=== PATIENT | female | born 1960 | race Two or more races ===

== ENCOUNTER 2016-09-28 17:33 | Emergency (ER) | payer BC, MEDICAID ==
[~2016-09-28] VITALS: Ht 165.1 cm; Wt 96.2 kg
[~2016-09-28 17:33] MED LIST: IBUPROFEN600 MG ORAL; KEFLEX500 MG ORAL; MACROBID100 MG ORAL; NEXIUM40 MG ORAL; NKM; NORCO 5-325 TA1 EACH ORAL; ZOFRAN4 MG ORAL
[2016-09-28 18:18] LABS: BASOPHILS % (AUTO) 0.7 % (0.0-2.0); EOSINOPHILS % (AUTO) 1.6 % (0.0-3.0); LYMPHOCYTES % (AUTO) 40.2 % (20.0-45.0); MEAN CORPUSCULAR HEMOGLOBIN 29.4 PG (27.0-31.0); MEAN CORPUSCULAR HGB CONC 34.1 G/DL (32.0-36.0); MEAN CORPUSCULAR VOLUME 86 FL (80-99); MEAN PLATELET VOLUME 5.5 FL (6.5-10.1); MONOCYTES % (AUTO) 6.2 % (1.0-10.0); NEUTROPHILS % (AUTO) 51.4 % (45.0-75.0); PLATELET COUNT 351 K/UL (150-450); RED CELL DISTRIBUTION WIDTH 12.1 % (11.6-14.8); WHITE BLOOD COUNT 11.2 K/UL (4.8-10.8)
[2016-09-28] MEDS ORDERED: Morphine Sulfate 4mg/ml Inj IVP ONE (18:30)
[2016-09-28] MEDS ORDERED: Aspirin Baby 81mg ORAL ONE (18:30)
[2016-09-28] MEDS ORDERED: Nitroglycerin 2% oint pkt TOPIC ONE (18:30)
[2016-09-28 18:41] LABS: TROPONIN I < 0.30 ng/mL (<=0.30)
[2016-09-28 18:45] LABS: ALANINE AMINOTRANSFERASE 31 U/L (3-33); ALBUMIN/GLOBULIN RATIO 1.2 (1.0-2.7); ANION GAP 16 (5-15); ASPARTATE AMINO TRANSFERASE 24 U/L (5-40); CALCIUM 9.8 mg/dL (8.6-10.2); CARBON DIOXIDE 25 mEQ/L (20-30); CHLORIDE 98 mEQ/L (98-107); GLOMERULAR FILTRATION RATE 57.8 mL/min (>60); HEMOLYSIS 3; SODIUM 139 mEQ/L (135-145); TOTAL PROTEIN 7.9 g/dL (6.6-8.7)
[2016-09-28] MEDS ORDERED: TRAMADOL HCL50 MG ORAL (18:53)
[2016-09-28 18:55] LABS: CKMB < 1.5 ng/mL (< 3.8)
[2016-09-28 19:08] VITALS: BP 154/79
[2016-09-28] MEDS ORDERED: LORazepam Inj 2mg/ml 1ml IV ONE (20:00)
[2016-09-28 20:13] LABS: APPEARANCE,URINE CLEAR; KETONES,URINE NEGATIVE (NEGATIVE); LEUKOCYTE ESTERASE ,URINE 3+ (NEGATIVE); NITRITE,URINE NEGATIVE (NEGATIVE); PH,URINE 6 (4.5-8.0); PROTEIN,URINE NEGATIVE (NEGATIVE); UROBILINOGEN,URINE NORMAL MG/DL (0.0-1.0)
[2016-09-28 20:25] LABS: BACTERIA,URINE FEW /HPF; SQUAMOUS EPITHELIAL CELL,UR MANY /LPF (NONE/OCC); WBC,URINE 40-60 /HPF (0 - 2)
[2016-09-28 21:34] VITALS: BP 137/77
[2016-09-28] MEDS ORDERED: fentaNYL 100 mcg/2 mL IV ONE (21:45)
--- NOTE | 2016-09-28 22:15 | Emergency Room Report ---
History of Present Illness General Chief Complaint: Chest Pain Source: Patient (KELLI MAGANA) Present Illness HPI The patient is a 55-year-old female with a history of depression and untreated hypertension presenting for right-sided back pain and chest pain. The patient states that back pain began one week prior for no known reason. She denies any fall or other injury. This is described as an 8/10 dull ache and radiates from the right lower back to the right leg. Pain worse with movement. She has tried tramadol and Motrin which does help a little. The patient also noticed chest pain which began 2 hours prior to arrival. Pain has been constant and is described as a 5/10 pressure to the mid chest. Does not radiate. No known provoking or relieving factors. She also admits to feeling of shortness of breath. She denies having this sensation in the past. She denies any other symptoms including nausea, vomiting, fever, chills, headache, dizziness, numbness or tingling, weakness, abdominal pain (KELLI MAGANA) Allergies: Coded Allergies: No Known Allergies (Verified Allergy, Unknown, 04/01/09) Patient History Past Medical History: see triage record Pertinent Family History: none Reviewed Nursing Documentation: PMH: Agreed, PSxH: Agreed (KELLI MAGANA) Nursing Documentation-PMH Past Medical History: No Stated History Hx Cardiac Problems: No Hx Hypertension: No Hx Cancer: No Hx Gastrointestinal Problems: No Hx Neurological Problems: No (KELLI MAGANA) Review of Systems All Other Systems: negative except mentioned in HPI (KELLI MAGANA) Physical Exam Vital Signs Date Time Temp Pulse Resp B/P Pulse Ox O2 Delivery O2 Flow Rate FiO2 09/28/16 17:41 97.7 79 16 154/78 99 09/28/16 19:08 Room Air Sp02 EP Interpretation: reviewed, normal General Appearance: no apparent distress, alert, GCS 15, non-toxic Head: normocephalic, atraumatic Eyes: bilateral eye PERRL, bilateral eye normal inspection ENT: hearing grossly normal, normal pharynx, no angioedema, normal voice Neck: full range of motion, supple/symm/no masses Respiratory: chest non-tender, lungs clear, normal breath sounds, no accessory muscle use, no wheezing, speaking full sentences Cardiovascular #1: regular rate, rhythm, no edema, no gallop, no JVD, no murmur Gastrointestinal: normal bowel sounds, non tender, soft, non-distended, no guarding, no rebound Musculoskeletal: back normal, gait/station normal, normal range of motion, tender - TTP over the R lumbar paraspinous muscles Neurologic: alert, oriented x3, responsive, motor strength/tone normal, sensory intact, speech normal Psychiatric: judgement/insight normal, memory normal, mood/affect normal, no suicidal/homicidal ideation Skin: normal color, no rash, warm/dry, well hydrated (KELLI MAGANA.[email or web address]) Medical Decision Making PA Attestation Dr. Sepulveda is my supervising physician. Patient management was discussed with my supervising physician (KELLI MAGANA) Diagnostic Impression: Primary Impression: Chest pain Qualified Codes: R07.9 - Chest pain, unspecified Additional Impressions: UTI (urinary tract infection) Qualified Codes: N30.00 - Acute cystitis without hematuria Back muscle spasm ER Course The patient is a 55-year-old female presenting for right-sided back pain and chest pain Differential diagnosis include but not limited to ACS, PE,CHF, pneumonia, gastritis, anxiety, muscle strain, among others PE: Pt is hypertensive. Otherwise unremarkable. NAD RRR. No MRG Lungs CTA bilat Abdomen is soft and nontender There is tenderness to palpation over the right lumbar paraspinal muscles. Blood work shows slight leukocytosis as well as a likely urinary tract infection. PO macrobid given. Cardiac markers are essentially negative EKG and chest x-ray both unremarkable. No acute changes The patient is given nitro paste The patient is given IV morphine and states that pain has only slightly improved. She is then given fentanyl and is feeling better. The patient will be transferred to [facility]. Case has been discussed between Dr. Sepulveda and Dr. Pillo Booth. The patient agrees with this plan Laboratory Tests Test 09/28/16 17:50 09/28/16 19:22 White Blood Count 11.2 K/UL (4.8-10.8) H Red Blood Count 4.20 M/UL (4.20-5.40) Hemoglobin 12.3 G/DL (12.0-16.0) Hematocrit 36.2 % (37.0-47.0) L Mean Corpuscular Volume 86 FL (80-99) Mean Corpuscular Hemoglobin 29.4 PG (27.0-31.0) Mean Corpuscular Hemoglobin Concent 34.1 G/DL (32.0-36.0) Red Cell Distribution Width 12.1 % (11.6-14.8) Platelet Count 351 K/UL (150-450) Mean Platelet Volume 5.5 FL (6.5-10.1) L Neutrophils (%) (Auto) 51.4 % (45.0-75.0) Lymphocytes (%) (Auto) 40.2 % (20.0-45.0) Monocytes (%) (Auto) 6.2 % (1.0-10.0) Eosinophils (%) (Auto) 1.6 % (0.0-3.0) Basophils (%) (Auto) 0.7 % (0.0-2.0) Sodium Level 139 mEQ/L (135-145) Potassium Level 4.0 mEQ/L (3.4-4.9) Chloride Level 98 mEQ/L (98-107) Carbon Dioxide Level 25 mEQ/L (20-30) Anion Gap 16 (5-15) H Blood Urea Nitrogen 20 mg/dL (7-23) Creatinine 1.0 mg/dL (0.5-0.9) H Estimate Glomerular Filtration Rate 57.8 mL/min (>60) Glucose Level 90 mg/dL (74-106) Calcium Level 9.8 mg/dL (8.6-10.2) Total Bilirubin 0.5 mg/dL (0.0-1.2) Aspartate Amino Transferase (AST) 24 U/L (5-40) Alanine Aminotransferase (ALT) 31 U/L (3-33) Alkaline Phosphatase 159 U/L (35-104) H Total Creatine Kinase 81 U/L (26-140) Creatine Kinase MB < 1.5 ng/mL (< 3.8) Creatine Kinase MB Relative Index Troponin I < 0.30 ng/mL (<=0.30) Total Protein 7.9 g/dL (6.6-8.7) Albumin 4.4 g/dL (3.5-5.2) Globulin 3.5 g/dL Albumin/Globulin Ratio 1.2 (1.0-2.7) Urine Color Pale yellow Urine Appearance Clear Urine pH 6 (4.5-8.0) Urine Specific [place] 1.015 (1.005-1.035) Urine Protein Negative (NEGATIVE) Urine Glucose (UA) Negative (NEGATIVE) Urine Ketones Negative (NEGATIVE) Urine Occult Blood 1+ (NEGATIVE) H Urine Nitrite Negative (NEGATIVE) Urine Bilirubin Negative (NEGATIVE) Urine Urobilinogen Normal MG/DL (0.0-1.0) Urine Leukocyte Esterase 3+ (NEGATIVE) H Urine RBC 2-4 /HPF (0 - 2) H Urine WBC 40-60 /HPF (0 - 2) H Urine Squamous Epithelial Cells Many /LPF (NONE/OCC) H Urine Bacteria Few /HPF (NONE) Urine Opiates Screen Negative (NEGATIVE) Urine Barbiturates Screen Negative (NEGATIVE) Phencyclidine (PCP) Screen Negative (NEGATIVE) Urine Amphetamines Screen Negative (NEGATIVE) Urine Benzodiazepines Screen Negative (NEGATIVE) Urine Cocaine Screen Negative (NEGATIVE) Urine Marijuana (THC) Screen Negative (NEGATIVE) Lab Results Impression There is leukocytosis as well as signs of urinary tract infection. Otherwise unremarkable. Cardiac markers essentially negative (KELLI MAGANA P.A.) ER Course Patient evaluated in full by me. I agree with the above assessment. Patient needs observation and further evaluation for chest pain. Treatment of UTI begun. Discussed with Dr. Pillo Booth who accepts the patient at [facility] (Anson Sepulveda M.D.) EKG Diagnostic Results EP Interpretation: NSR no acute changes Rate: normal - 70 Rhythm: NSR ST Segments: no acute changes ASA given to the pt in ED: Yes PA Scribe Text EKG was reviewed and read with my supervising physician. No acute ST segment changes are seen. Normal rate and rhythm. No acute changes. (KELLI MAGANA P.A.) Chest X-Ray Diagnostic Results Chest X-Ray Ordered: Yes # of Views/Limited/Complete: 1 View EP Interpretation: Yes Interpretation: no consolidation, no effusion, no pneumothorax, no acute cardiopulmonary disease Indication: Chest Pain Impression: No acute disease PA Scribe Text I am acting as scribe for my supervising physician. My supervising physician's interpretation of the chest xrays are there is no consolidation, no effusion, no acute cardiopulmonary disease, no pneumothorax (KELLI MAGANA) Last Vital Signs Date Time Temp Pulse Resp B/P Pulse Ox O2 Delivery O2 Flow Rate FiO2 09/28/16 21:34 97.8 68 16 137/77 94 Room Air Status: improved (KELLI MAGANA) Last Vital Signs Date Time Temp Pulse Resp B/P Pulse Ox O2 Delivery O2 Flow Rate FiO2 09/28/16 23:53 97.8 78 16 131/74 97 Room Air Status: improved (Anson Sepulveda M.D.) Disposition: ER T-TRM HOSP Condition: Serious - but stable for transfer [facility] KELLI MAGANA Sep 28, 2016 22:15 Anson Sepulveda M.D. Sep 28, 2016 22:42
[2016-09-28 23:06] VITALS: BP 131/74
[2016-09-28 23:53] VITALS: BP 131/74
--- NOTE | 2016-09-29 07:11 | Diagnostic Imaging Report ---
Indication: Chest pain Technique: Single portable AP view of the chest. Findings: Comparison: 08/03/13 The bones and extra pulmonary soft tissues, cardiomediastinal silhouette, pulmonary vasculature and parenchyma, and pleural surfaces remain unremarkable. IMPRESSION: Negative portable AP chest, unchanged.
--- NOTE | 2016-10-01 20:16 | Cardiology Report ---
APPROVED REPORT EKG Measurement Heart [id number] Normal sinus rhythm Normal ECG
== END 2016-09-28 23:57 | disposition short-term general hospital (02) ==
LOC: EMR 18:20
DX: R07.9 Chest pain, unspecified (principal); N30.00 Acute cystitis without hematuria; M62.830 Muscle spasm of back; R06.02 Shortness of breath; I10 Essential (primary) hypertension; D72.829 Elevated white blood cell count, unspecified
CPT/HCPCS: 36415; 71010; 80053; 80300; 81003; 82550; 82553; 84484; 85025; 87086; 93005; 96374; 96375; 99285; J2270; J2405; J3010

== ENCOUNTER 2017-06-20 19:35 | Emergency (ER) | payer BC, MEDICAID ==
[~2017-06-20] VITALS: Ht 165.1 cm; Wt 113.4 kg
[~2017-06-20 19:35] MED LIST changes: +TRAMADOL HCL50 MG ORAL
--- NOTE | 2017-06-20 20:44 | Emergency Room Report ---
History of Present Illness General Chief Complaint: Laceration Source: Patient Present Illness HPI Patient is a 56-year-old female who presented after increased pain to a left small finger laceration the patient is right-hand dominant. The patient had injury yesterday approximately 11 AM. She reported having increased pain to the left mall finger as well as some difficulty with movements. She had used some clotting medication to stop the bleeding. The patient denied any fever. She denied definite foreign body. Allergies: Coded Allergies: No Known Allergies (Verified Allergy, Unknown, 04/01/09) Patient History Past Medical History: see triage record Now: No Reviewed Nursing Documentation: PMH: Agreed, PSxH: Agreed Nursing Documentation-PMH Past Medical History: No Stated History Hx Cardiac Problems: No Hx Hypertension: No Hx Cancer: No Hx Gastrointestinal Problems: No Hx Neurological Problems: No Review of Systems All Other Systems: negative except mentioned in HPI Physical Exam Vital Signs Date Time Temp Pulse Resp B/P (MAP) Pulse Ox O2 Delivery O2 Flow Rate FiO2 06/20/17 20:05 98.0 93 14 148/78 95 Room Air 98.1 General Appearance: well appearing, no apparent distress, alert, GCS 15 Head: normocephalic, atraumatic ENT: hearing grossly normal, normal voice Neck: full range of motion, supple Respiratory: no respiratory distress, speaking full sentences Musculoskeletal: normal inspection, back normal, no calf tenderness Neurologic: normal inspection, alert, oriented x3, responsive, normal gait Psychiatric: mood/affect normal Skin: no rash, other, laceration - laceration 1cm to left small finger, good movement of FDP and fds Medical Decision Making Diagnostic Impression: Primary Impression: Laceration ER Course Patient presented for finger laceration. Differential diagnosis included was not limited to foreign body, nerve injury, tendon injury among others. Patient has a benign exam and does not appear to require any further imaging or laboratory testing at this time the patient appears to have a laceration concerning for partial tendon laceration. The patient was noted to have adequate movement. The patient was placed in a splint. The tetanus was updated. Patient was noted to have prolonged time course to presentation. The patient will be referred to hand surgeon for definitive management.The patient is advised to call and surgeon for appointment.The patient is given prescription for Keflex. Last Vital Signs Date Time Temp Pulse Resp B/P (MAP) Pulse Ox O2 Delivery O2 Flow Rate FiO2 3/15/18 20:05 98.0 93 14 148/78 95 Room Air 98.1 Status: improved Disposition: HOME, SELF-CARE Condition: Stable Scripts Ibuprofen* (MOTRIN*) 600 Mg Tablet 600 MG ORAL Q8H Y for For Pain, #30 TAB 0 Refills Prov: Jason Camacho 06/20/17 Cephalexin* (KEFLEX*) 500 Mg Capsule 500 MG ORAL Q6H, #28 CAP 0 Refills Prov: Jason Camacho 06/20/17 Jason Camacho Jun 20, 2017 20:44
[2017-06-20] MEDS ORDERED: IBUPROFEN600 MG ORAL (20:46)
[2017-06-20] MEDS ORDERED: KEFLEX500 MG ORAL (20:46)
[2017-06-20 21:00] VITALS: BP 148/78
[2017-06-20] MEDS: Tetanus/Diptheria/Pertussis Vaccine 0.5ml Syr IM ONE (22:11)
[2017-06-20] MEDS: Cephalexin 500mg cap ORAL ONE (22:12)
[2017-06-20 22:20] VITALS: BP 148/78
== END 2017-06-20 22:20 | disposition home or self-care (01) ==
LOC: EMR 20:19
DX: S61.217A Laceration without foreign body of left little finger without damage to nail, initial encounter (principal); W26.0XXA Contact with knife, initial encounter; Y92.009 Unspecified place in unspecified non-institutional (private) residence as the place of occurrence of the external cause; Z23 Encounter for immunization
CPT/HCPCS: 90471; 90715; 99284

== ENCOUNTER 2017-11-29 15:25 | Emergency (ER) | payer BC ==
[~2017-11-29] VITALS: Ht 162.6 cm; Wt 99.8 kg
[2017-11-29] MEDS ORDERED: AZOR 5-40 MG T1 EACH ORAL (15:41)
[2017-11-29] MEDS ORDERED: BENICAR HCT 201 EACH ORAL (15:41)
[2017-11-29 15:45] VITALS: BP 146/79
--- NOTE | 2017-11-29 16:37 | Emergency Room Report ---
History of Present Illness General Chief Complaint: Headache Source: Patient, Family Member Present Illness HPI Patient presents with 3 days of headache. She also complains of left-sided facial numbness. She's had headaches this severe in the past but they usually resolve after taking medication. She tried taking medication without help. She noted her blood pressure was high. She does take medications for hypertension. There's some stress at this time. When she's had headaches like this in the past she has had some facial numbness on the left-hand side. She has nausea without any vomiting. Stools have been loose normal color. No extremity weakness or numbness. No chest pain, palpitations, dysuria, rashes, trauma, extremity pain, abdominal pain. No blood thinners, oncologic problems. Allergies: Coded Allergies: No Known Allergies (Verified Allergy, Unknown, 04/01/09) Patient History Past Medical History: see triage record Social History: Denies: smoking, alcohol use Social History Narrative with daughter Reviewed Nursing Documentation: PMH: Agreed; PSxH: Agreed Nursing Documentation-PMH Past Medical History: No History, Except For Hx Cardiac Problems: No Hx Hypertension: Yes Hx Pacemaker: No Hx Asthma: No Hx COPD: No Hx Diabetes: No Hx Cancer: No Hx Gastrointestinal Problems: No Hx Dialysis: No History Of Psychiatric Problem: No Hx Neurological Problems: No Hx Cerebrovascular Accident: No Hx Seizures: No Review of Systems All Other Systems: negative except mentioned in HPI Physical Exam Vital Signs Date Time Temp Pulse Resp B/P (MAP) Pulse Ox O2 Delivery O2 Flow Rate FiO2 11/29/17 15:35 98.2 96 16 146/79 96 Room Air 98.2 Sp02 EP Interpretation: reviewed, normal General Appearance: well appearing, no apparent distress, GCS 15 Head: normocephalic Eyes: bilateral eye normal inspection, bilateral eye PERRL, bilateral eye EOMI ENT: normal pharynx, moist mucus membranes, other - no facial assymetry Neck: supple Respiratory: chest non-tender, lungs clear, normal breath sounds Cardiovascular #1: regular rate, rhythm Cardiovascular #2: 2+ radial (R) Gastrointestinal: normal inspection, normal bowel sounds, non tender, no mass, non-distended Musculoskeletal: back normal, gait/station normal, normal range of motion Neurologic: alert, oriented x3, program or project administrator III-XII nml as tested - slightl facial numbness L, motor strength/tone normal, DTRs symmetric, sensory intact, cerebellar normal, normal gait, speech normal Psychiatric: mood/affect normal Skin: normal inspection, warm/dry Medical Decision Making Diagnostic Impression: Primary Impression: Headache Qualified Codes: R51 - Headache Additional Impression: UTI (urinary tract infection) Qualified Codes: N30.00 - Acute cystitis without hematuria ER Course Patient presents with headache which is not worst in life, but more persistent. DDX: migraine, tension, bleed, [place], viral syndrome amongst others. Exam is against CVA or ischemic event. Evaluation with CT, EKG, CXR, labs. Treatment with Reglan, ativan, benadryl. EKG no injury. CXR normal. Labs with normal ESR, CBC, CMP. Pyuria. Rocephin given. Patient improved with treatment, pain now 4/10. Discussed possible etiologies and treatment plan with need for close observation. Patient stable for outpatient observation and treatment. Laboratory Tests Test 11/29/17 17:10 White Blood Count 10.1 K/UL (4.8-10.8) Red Blood Count 4.77 M/UL (4.20-5.40) Hemoglobin 13.6 G/DL (12.0-16.0) Hematocrit 39.9 % (37.0-47.0) Mean Corpuscular Volume 84 FL (80-99) Mean Corpuscular Hemoglobin 28.5 PG (27.0-31.0) Mean Corpuscular Hemoglobin Concent 34.0 G/DL (32.0-36.0) Red Cell Distribution Width 12.1 % (11.6-14.8) Platelet Count 353 K/UL (150-450) Mean Platelet Volume 5.1 FL (6.5-10.1) L Neutrophils (%) (Auto) 48.1 % (45.0-75.0) Lymphocytes (%) (Auto) 41.2 % (20.0-45.0) Monocytes (%) (Auto) 8.5 % (1.0-10.0) Eosinophils (%) (Auto) 1.3 % (0.0-3.0) Basophils (%) (Auto) 1.0 % (0.0-2.0) Erythrocyte Sedimentation Rate 21 MM/HR (0-30) Prothrombin Time 9.7 SEC (9.30-11.50) Prothrombin Time INR 0.9 (0.9-1.1) PTT 31 SEC (23-33) Urine Color Pale yellow Urine Appearance Clear Urine pH 5 (4.5-8.0) Urine Specific [place] 1.015 (1.005-1.035) Urine Protein Negative (NEGATIVE) Urine Glucose (UA) Negative (NEGATIVE) Urine Ketones Negative (NEGATIVE) Urine Blood 3+ (NEGATIVE) H Urine Nitrite Negative (NEGATIVE) Urine Bilirubin Negative (NEGATIVE) Urine Urobilinogen Normal MG/DL (0.0-1.0) Urine Leukocyte Esterase 2+ (NEGATIVE) H Urine RBC 5-10 /HPF (0 - 2) H Urine WBC 15-20 /HPF (0 - 2) H Urine Squamous Epithelial Cells Many /LPF (NONE/OCC) H Urine Bacteria Moderate /HPF (NONE) H Sodium Level 140 MMOL/L (136-145) Potassium Level 3.8 MMOL/L (3.5-5.1) Chloride Level 103 MMOL/L (98-107) Carbon Dioxide Level 24 MMOL/L (21-32) Anion Gap 13 mmol/L (5-15) Blood Urea Nitrogen 18 mg/dL (7-18) Creatinine 1.1 MG/DL (0.55-1.30) Estimate Glomerular Filtration Rate 51.3 mL/min (>60) Glucose Level 93 MG/DL (74-106) Calcium Level 9.7 MG/DL (8.5-10.1) Total Bilirubin 0.4 MG/DL (0.2-1.0) Aspartate Amino Transferase (AST) 25 U/L (15-37) Alanine Aminotransferase (ALT) 43 U/L (12-78) Alkaline Phosphatase 106 U/L (46-116) Total Creatine Kinase 97 U/L (26-308) Troponin I 0.000 ng/mL (0.000-0.056) Total Protein 8.6 G/DL (6.4-8.2) H Albumin 4.0 G/DL (3.4-5.0) Globulin 4.6 g/dL Albumin/Globulin Ratio 0.9 (1.0-2.7) L EKG Diagnostic Results Rate: normal Rhythm: NSR ST Segments: no acute changes Rhythm Strip Diag. Results EP Interpretation: yes Rhythm: NSR, no PVC's, no ectopy Chest X-Ray Diagnostic Results Chest X-Ray Diagnostic Results : Chest X-Ray Ordered: Yes # of Views/Limited/Complete: 1 View Indication: Other Interpretation: no consolidation, no effusion, no pneumothorax Impression: No acute disease Electronically Signed by: Electronically signed by Anson Sepulveda MD CT/MRI/US Diagnostic Results CT/MRI/US Diagnostic Results : Imaging Test Ordered: head Impression no bleed, mass, abnormalities Last Vital Signs Date Time Temp Pulse Resp B/P (MAP) Pulse Ox O2 Delivery O2 Flow Rate FiO2 11/29/17 21:07 97.8 88 18 134/75 99 Room Air 97.8 Status: improved Disposition: HOME, SELF-CARE Condition: Improved Scripts Nitrofurantoin Monohyd/M-Cryst* (MACROBID 100 MG*) 100 Mg Capsule 100 MG ORAL EVERY 12 HOURS, #14 CAP Prov: Anson Sepulveda M.D. 11/29/17 Ondansetron Odt* (ZOFRAN ODT*) 4 Mg Tab.rapdis 4 MG BC EVERY 8 HOURS, #6 TAB 1 Refill Prov: Anson Sepulveda M.D. 11/29/17 Tramadol Hcl* (ULTRAM*) 50 Mg Tablet 50 MG ORAL Q6H PRN for For Pain, #8 TAB 0 Refills Prov: Anson Sepulveda M.D. 11/29/17 Anson Sepulveda M.D. Nov 29, 2017 16:37
[2017-11-29] MEDS ORDERED: DiphenhydrAMINE 50mg/ml Inj IVP ONE (16:45)
[2017-11-29] MEDS ORDERED: Metoclopramide 10mg/2ml Inj IVP ONE (16:45)
[2017-11-29] MEDS ORDERED: LORazepam Inj 2mg/ml 1ml IV ONE (16:45)
[2017-11-29] MEDS: Sodium Chloride 500ML 550 ML IV SCH ×2 (17:09→19:47)
[2017-11-29 17:19] LABS: APPEARANCE,URINE CLEAR; BILIRUBIN, URINE NEGATIVE (NEGATIVE); COLOR,URINE PALE YELLOW; GLUCOSE, URINE (UA) NEGATIVE (NEGATIVE); KETONES,URINE NEGATIVE (NEGATIVE); LEUKOCYTE ESTERASE ,URINE 2+ (NEGATIVE); NITRITE,URINE NEGATIVE (NEGATIVE); PH,URINE 5 (4.5-8.0); PROTEIN,URINE NEGATIVE (NEGATIVE); UROBILINOGEN,URINE NORMAL MG/DL (0.0-1.0)
[2017-11-29 17:27] LABS: EOSINOPHILS % (AUTO) 1.3 % (0.0-3.0); HEMATOCRIT 39.9 % (37.0-47.0); HEMOGLOBIN 13.6 G/DL (12.0-16.0); LYMPHOCYTES % (AUTO) 41.2 % (20.0-45.0); MEAN CORPUSCULAR VOLUME 84 FL (80-99); MONOCYTES % (AUTO) 8.5 % (1.0-10.0); NEUTROPHILS % (AUTO) 48.1 % (45.0-75.0); PLATELET COUNT 353 K/UL (150-450); RED BLOOD COUNT 4.77 M/UL (4.20-5.40); RED CELL DISTRIBUTION WIDTH 12.1 % (11.6-14.8); WHITE BLOOD COUNT 10.1 K/UL (4.8-10.8)
[2017-11-29 17:38] LABS: ANION GAP 13 mmol/L (5-15); BLOOD UREA NITROGEN 18 mg/dL (7-18); CALCIUM 9.7 MG/DL (8.5-10.1); CARBON DIOXIDE 24 MMOL/L (21-32); CHLORIDE 103 MMOL/L (98-107); CREATININE 1.1 MG/DL (0.55-1.30); POTASSIUM 3.8 MMOL/L (3.5-5.1); SODIUM 140 MMOL/L (136-145)
[2017-11-29 17:39] LABS: INR 0.9 (0.9-1.1)
[2017-11-29 17:43] LABS: ALANINE AMINOTRANSFERASE 43 U/L (12-78); ALBUMIN/GLOBULIN RATIO 0.9 (1.0-2.7); ALKALINE PHOSPHATASE 106 U/L (46-116); ASPARTATE AMINO TRANSFERASE 25 U/L (15-37); BILIRUBIN,TOTAL 0.4 MG/DL (0.2-1.0); CREATINE KINASE 97 U/L (26-308)
[2017-11-29] MEDS ORDERED: cefTRIAXone 1 GM in NS 55 ML IVPB ONE (17:45)
[2017-11-29 18:00] VITALS: BP 131/67
--- NOTE | 2017-11-29 18:26 | Diagnostic Imaging Report ---
EXAM: XR Chest, 1 View CLINICAL HISTORY: Headache TECHNIQUE: Frontal view of the chest. COMPARISON: 09/28/2016 FINDINGS: Lungs: Unremarkable. No consolidation. Pleural space: Unremarkable. No pneumothorax. Heart: Unremarkable. No cardiomegaly. Mediastinum: Unremarkable. Bones/joints: No acute osseous abnormality. IMPRESSION: No acute cardiopulmonary process.
[2017-11-29 19:00] VITALS: BP 130/72
--- NOTE | 2017-11-29 20:10 | Diagnostic Imaging Report ---
EXAM: CT Head Without Intravenous Contrast CLINICAL HISTORY: Headache TECHNIQUE: Axial computed tomography images of the head/brain without intravenous contrast. CTDI is 0.15, 78.38 mGy and DLP is 1343 mGy-cm. One or more of the following dose reduction techniques were used: automated exposure control, adjustment of the mA and/or kV according to patient size, use of iterative reconstruction technique. COMPARISON: No relevant prior studies available. FINDINGS: Brain: Unremarkable. No acute hemorrhage. Normal ye-white differentiation. No significant mass effect. Ventricles: Unremarkable. No ventriculomegaly. Bones/joints: Unremarkable. No acute fracture. Soft tissues: Unremarkable. Sinuses: Unremarkable as visualized. No acute sinusitis. Mastoid air cells: Unremarkable. IMPRESSION: No acute intracranial abnormality.
[2017-11-29] MEDS ORDERED: TRAMADOL HCL50 MG ORAL (20:55)
[2017-11-29] MEDS ORDERED: ONDANSETRON ODT4 MG BC (20:55)
[2017-11-29] MEDS ORDERED: NITROFURANTOIN100 M2 ORAL (20:55)
[2017-11-29 21:06] VITALS: BP 134/75
[2017-11-29 21:07] VITALS: BP 134/75
--- NOTE | 2017-12-01 13:55 | Cardiology Report ---
APPROVED REPORT EKG Measurement Heart [id number] Normal sinus rhythm Normal ECG
== END 2017-11-29 21:22 | disposition home or self-care (01) ==
LOC: EMR 16:39
DX: N39.0 Urinary tract infection, site not specified (principal); R51 Headache
CPT/HCPCS: 36415; 70450; 71045; 80053; 81003; 82550; 84484; 85025; 85610; 85651; 85730; 87086; 93005; 96361; 96365; 96375; 99285; J0696; J1200; J2765; J7040